=== PATIENT | male | born 1985 | race Caucasian/White ===

== ENCOUNTER 2017-01-26 17:32 | Emergency (ER) | payer OTHER ==
[~2017-01-26] VITALS: Ht 167.6 cm; Wt 87.2 kg
[~2017-01-26 17:32] MED LIST: OMEP10CA2 PO
[2017-01-26 17:34] VITALS: TEMP 36.6; Ht 167.6 cm; Wt 87.2 kg
[2017-01-26] MEDS ORDERED: SODIUM CHLORIDE 0.9% 1000ML 1,000 ML IV STA (17:57)
[2017-01-26] MEDS ORDERED: MECLIZINE HCL 25 MG TAB PO STA (17:57)
[2017-01-26 18:23] LABS: BASO % 0.2 %; BASO ABS # 0.01 K/uL (0-0.2); COMPLETE YES; HEMATOCRIT 42.7 % (42-52); IG% 0.8 %; LYMPH % 32.2 %; MEAN CELL VOLUME 82.9 fL (80-100); MEAN CORPUSCULAR HEMOGLOBIN 28.3 pg (25-34); MEAN CORPUSCULAR HGB CONC 34.2 g/dl (32-36); MEAN PLATELET VOLUME 10.6 fL (7.4-10.4); MONO % 6.1 %; NEUT % 58.7 %; PLATELET COUNT 146 K/uL (130-400); RED BLOOD COUNT 5.15 M/uL (4.7-6.1); WHITE BLOOD COUNT 6.53 K/uL (4.8-10.8)
--- NOTE | 2017-01-26 18:28 | DIAGNOSTIC IMAGING REPORT ---
CHEST ONE VIEW PORTABLE CLINICAL HISTORY: DIZZINESS, NOT FEELING WELL, RECENT C/P dyspnea COMPARISON STUDY: No previous studies for comparison. FINDINGS: The bones soft tissues and hemidiaphragms are normal. The cardiomediastinal silhouette is normal. The lungs are clear. The pulmonary vasculature is normal. IMPRESSION: Negative chest. Electronically signed by: Rufino Mayer M.D. 01/26/2017 6:27 PM Dictated Date/Time: 01/26/2017 6:27 PM
[2017-01-26] MEDS ORDERED: OMEP20TA PO (18:33)
[2017-01-26 18:34] LABS: URINE APPEARANCE CLEAR (CLEAR); URINE BILIRUBIN NEG (NEG); URINE COLOR YELLOW; URINE NITRITE NEG (NEG); URINE PH 6.5 (4.5-7.5); URINE SPECIFIC GRAVITY 1.012 (1.000-1.030); UROBILINOGEN NEG (NEG); ZZUR CULT IF INDIC CLEAN CATCH NO
[2017-01-26 18:37] LABS: BLOOD UREA NITROGEN 16 mg/dl (7-18); BUN/CREATININE RATIO 15.8 (10-20); CALCIUM 8.9 mg/dl (8.5-10.1); CARBON DIOXIDE 28 mmol/L (21-32); CHLORIDE 105 mmol/L (98-107); GLUCOSE 84 mg/dl (70-99); POTASSIUM 3.9 mmol/L (3.5-5.1); SODIUM 141 mmol/L (136-145)
[2017-01-26 18:38] LABS: MANUAL MICROSCOPIC REQUIRED? NO; REVIEW REQ? NO
[2017-01-26 18:39] LABS: C-REACTIVE PROTEIN < 0.29 mg/dl (0-0.29)
--- NOTE | 2017-01-26 18:53 | DIAGNOSTIC IMAGING REPORT ---
HEAD CT NONCONTRAST CT DOSE: 537.48 mGy.cm HISTORY: Mental status change HARRISON, VERTIGO SYMPTOMS, H/O SINUS RECONSTRUCTION TECHNIQUE: Multiaxial CT images of the head were performed without the use of intravenous contrast. Comparison: None. Findings: The paranasal sinuses and mastoid air cells are clear. The calvarium and skull base are intact. The ventricles and sulci are within normal limits. There is no mass, hematoma, midline shift, or acute infarct. Impression: No acute intracranial abnormality. Electronically signed by: Rufino Mayer M.D. 01/26/2017 6:52 PM Dictated Date/Time: 01/26/2017 6:51 PM
[2017-01-26 19:11] LABS: LYME DISEASE AB IGG NEG (NEG); LYME DISEASE AB IGM NEG (NEG)
[2017-01-26] MEDS ORDERED: MECL1TAB42 PO (19:29)
[2017-01-26] MEDS ORDERED: MECLIZINE HCL 25MG HOME PACK PO ONE (19:30)
[2017-01-26 19:50] VITALS: BP 127/81; PULSE 73; O2SAT 98
--- NOTE | 2017-01-26 21:26 | EMERGENCY ROOM VISIT NOTE ---
History First contact with patient: 17:42 Chief Complaint: DIZZY Stated Complaint: DIZZINESS, UPSET STOMACH,TIREDNESS History of Present Illness The patient is a 31 year old male who presents to the Emergency Room with complaints of intermittent dizziness, nausea, fatigue and increased urination. The patient reports that he developed dizziness last Saturday when he rolled out of bed. The patient reports that the symptoms resolved within approximately 30 minutes. That afternoon, he bent over at a birthday green party and developed similar dizziness. He reports that the symptoms were like room was spinning. When he got up Saturday morning, he had to hold onto the mckeon because he felt like he was going to fall. The patient reports that he went through the remainder of the week without any significant symptoms, but did notice some mild symptoms with sudden movement and bending over, along with getting out of bed in the morning. He was playing with his dog on the floor this afternoon and developed similar symptoms. The patient reports a prior history of nasal bone fracture and sinus/nasal reconstruction. He denies any recent runny nose, sore throat, cough, fevers or chills. He did feel sweaty this afternoon when his symptoms developed. The patient denies any recent chest pain, shortness of breath, neck pain, back pain or abdominal pain. He does report that he has had increased urination frequently without increase oral intake. He denies any history of diabetes. He denies any recent rashes or risk of tick bites. Denies any known sick contacts. He has had no recent foreign travel. He denies any headache with the symptoms. He has not noticed any difficulty with speech, swallowing or weakness on one side of his body. Review of Systems HEENT: Denies visual problems, hearing loss, tinnitus. Denies difficulty swallowing or oral lesions. PULMONARY: Denies cough, shortness of breath, sputum production or hemoptysis. CARDIOVASCULAR: Denies chest pain, palpitations, dyspnea on exertion, orthopnea or peripheral edema. GASTROINTESTINAL: Denies diarrhea, constipation, nausea, vomiting, or abdominal pain. GENITOURINARY: Reports increased urinary frequency, without urgency, hematuria or nocturia. NEUROLOGIC: Denies history of epilepsy, CVA, TIA or chronic headaches. MUSCULOSKELETAL: Denies history of joint tenderness/swelling. SKIN: Denies rashes or lesions. PSYCHIATRIC: Denies history of depression or mental illness. ENDOCRINE: Denies history of diabetes or thyroid disorders. Past Medical/Surgical History Medical Problems: (1) Nicotine Dependence, Unspecified, Uncomplicated Surgical Problems: (1) History of nasal surgery (2) History of sinus surgery Family History FH: diabetes mellitus FH: heart disease FH: hypertension Social History Smoking Status: Former Smoker Alcohol Use: none Marital Status: Housing Status: lives with family Occupation Status: employed Current/Historical Medications Scheduled Omeprazole (Omeprazole), 40 MG PO DAILY Scheduled PRN Meclizine Hcl (Meclizine Hcl), 1 TAB PO TID PRN for vertigo Allergies Coded Allergies: No Known Allergies (Unverified , 05/26/16) Physical Exam Vital Signs Date Time Temp Pulse Resp B/P (MAP) Pulse Ox O2 Delivery O2 Flow Rate FiO2 01/26/17 19:50 73 18 127/81 98 01/26/17 18:24 81 01/26/17 17:34 36.6 72 18 97 Room Air Physical Exam CONSTITUTIONAL: Healthy and well nourished. Alert and oriented X 3 with positive affect. Patient does not appear in any acute distress. HEENT: Normocephalic, atraumatic. Pupils equal, round and reactive. Patient has mild bulging of the TMs without air-fluid levels or purulent effusion. Nares are clear without rhinorrhea. No subconjunctival hemorrhage, scleral icterus or conjunctival injection/pallor. The patient has no nystagmus on exam. OROPHARYNX: Mild posterior frontal erythema without tonsillar hypertrophy or exudates. NECK: Full active range of motion without discomfort. No JVD or carotid bruits. LYMPHATICS: No cervical chain adenopathy. RESPIRATORY: Clear to auscultation bilaterally with no wheezing, crackles, rhonchi or stridor. CARDIOVASCULAR: Regular rate and rhythm with no murmurs, rubs or gallops. GASTROINTESTINAL: Bowel sounds present in all quadrants. Abdomen is soft and nontender to palpation. Negative CVA tenderness. No suprapubic tenderness to palpation. Negative McBurney's point tenderness. MUSCULOSKELETAL: Full range of motion of all joints without discomfort. INTEGUMENTARY: No rash or other significant dermatologic conditions noted. HEMATOLOGIC: No ecchymosis or petechiae. NEUROLOGIC: No focal neurologic deficits noted. As indicated in the previous section, no nystagmus noted. The patient does not appear ataxic when walking to his examination room. Normal finger to nose test. Negative pronator drift. Normal fast alternating movements. No pronator drift. Medical Decision & Procedures ER Provider Diagnostic Interpretation: My interpretation of an ECG shows a normal sinus rhythm of [address] elevation or other conduction abnormalities. My interpretation of a portable chest x-ray does not show any consolidations, pneumothorax or cardiac prominence. Noncontrast CT of the head does not show any intracranial bleed, mass effect, midline shift or abnormal sinuses. Radiologist report for the head CT is as follows: HEAD CT NONCONTRAST CT DOSE: 537.48 mGy.cm HISTORY: Mental status change HARRISON, VERTIGO SYMPTOMS, H/O SINUS RECONSTRUCTION TECHNIQUE: Multiaxial CT images of the head were performed without the use of intravenous contrast. Comparison: None. Findings: The paranasal sinuses and mastoid air cells are clear. The calvarium and skull base are intact. The ventricles and sulci are within normal limits. There is no mass, hematoma, midline shift, or acute infarct. Impression: No acute intracranial abnormality. Laboratory Results 01/26/17 18:05 Red Blood Count 5.15, Mean Corpuscular Volume 82.9, Mean Corpuscular Hemoglobin 28.3, Mean Corpuscular Hemoglobin Concent 34.2, Mean Platelet Volume 10.6, Neutrophils (%) (Auto) 58.7, Lymphocytes (%) (Auto) 32.2, Monocytes (%) (Auto) 6.1, Eosinophils (%) (Auto) 2.0, Basophils (%) (Auto) 0.2, Neutrophils # (Auto) 3.84, Lymphocytes # (Auto) 2.10, Monocytes # (Auto) 0.40, Eosinophils # (Auto) 0.13, Basophils # (Auto) 0.01 01/26/17 18:05 Test 01/26/17 18:05 01/26/17 18:30 White Blood Count 6.53 K/uL (4.8-10.8) Red Blood Count 5.15 M/uL (4.7-6.1) Hemoglobin 14.6 g/dL (14.0-18.0) Hematocrit 42.7 % (42-52) Mean Corpuscular Volume 82.9 fL (80-100) Mean Corpuscular Hemoglobin 28.3 pg (25-34) Mean Corpuscular Hemoglobin Concent 34.2 g/dl (32-36) Platelet Count 146 K/uL (130-400) Mean Platelet Volume 10.6 fL (7.4-10.4) Neutrophils (%) (Auto) 58.7 % Lymphocytes (%) (Auto) 32.2 % Monocytes (%) (Auto) 6.1 % Eosinophils (%) (Auto) 2.0 % Basophils (%) (Auto) 0.2 % Neutrophils # (Auto) 3.84 K/uL (1.4-6.5) Lymphocytes # (Auto) 2.10 K/uL (1.2-3.4) Monocytes # (Auto) 0.40 K/uL (0.11-0.59) Eosinophils # (Auto) 0.13 K/uL (0-0.5) Basophils # (Auto) 0.01 K/uL (0-0.2) RDW Standard Deviation 37.0 fL (36.4-46.3) RDW Coefficient of Variation 12.3 % (11.5-14.5) Immature Granulocyte % (Auto) 0.8 % Immature Granulocyte # (Auto) 0.05 K/uL (0.00-0.02) Erythrocyte Sedimentation Rate 2 mm/hr (0-14) Anion Gap 8.0 mmol/L (3-11) Est Creatinine Clear Calc Drug Dose 108.7 ml/min Estimated GFR () 114.1 Estimated GFR (Non- 98.5 BUN/Creatinine Ratio 15.8 (10-20) Calcium Level 8.9 mg/dl (8.5-10.1) C-Reactive Protein < 0.29 mg/dl (0-0.29) Lyme Disease IgG Antibody NEG (NEG) Lyme Disease IgM Antibody NEG (NEG) Monoscreen NEG (NEG) Urine Color YELLOW Urine Appearance CLEAR (CLEAR) Urine pH 6.5 (4.5-7.5) Urine Specific [place] 1.012 (1.000-1.030) Urine Protein NEG (NEG) Urine Glucose (UA) NEG (NEG) Urine Ketones NEG (NEG) Urine Occult Blood NEG (NEG) Urine Nitrite NEG (NEG) Urine Bilirubin NEG (NEG) Urine Urobilinogen NEG (NEG) Urine Leukocyte Esterase NEG (NEG) The above labs were reviewed. Urinalysis is unremarkable. CBC, partial renal profile and LFTs are normal. C-reactive protein and sedimentation rate are normal. [place] screen and Lyme screen are negative. Medications Administered Medications (Trade) Dose Ordered Sig/Regis Route Start Time Stop Time Status Last Admin Dose Admin Meclizine HCl (Antivert Tab) 50 mg NOW STAT PO 01/26/17 17:57 01/26/17 18:02 DC 01/26/17 18:25 50 MG Sodium Chloride 1,000 ml @ 999 mls/hr Q1H1M STAT IV 01/26/17 17:57 01/26/17 18:57 DC 01/26/17 18:24 999 MLS/HR Meclizine HCl (Antivert 25MG Home Pack) 1 homepack UD ONCE PO 01/26/17 19:30 01/26/17 19:31 DC 01/26/17 19:45 1 HOMEPACK ED Course Patient history and physical exam were performed. Nurse's notes were reviewed. Vital signs were reviewed and were normal. The patient was advised that his symptoms are most consistent with benign positional vertigo. However, I did suggest performing additional lab work because of the additional symptoms that he has been experiencing lately. IV access was established, and labs were drawn. The patient was hydrated with a liter normal saline. He was administered meclizine 50 mg orally. Review of labs shows no acute abnormalities. Lyme screen and mono screen are negative. ECG and portable chest x-ray were normal. Noncontrast CT of the head was also normal. The patient reports improvement of his symptoms with the oral meclizine. He requested discharge home. The patient was advised that his symptoms are most consistent with benign positional vertigo. The patient was provided with a prescription for meclizine. He was instructed to avoid sudden movements. An educational handout was provided. He was encouraged to follow-up with his family doctor for further reevaluation and management. Return to the emergency Department for uncontrollable symptoms or other concerning neurologic symptoms. The patient was happy with plan of care, voiced understanding of all discharge instructions I'll and was discharged with his . Medical Decision Patient present to the emergency department for evaluation of intermittent dizziness with sensation of the room spinning. He also ambulates with his arms outstretched because of the unsteadiness. The symptoms are worsened with sudden movement and bending over. The symptoms are most consistent with benign positional vertigo. His laboratory studies are unremarkable. He has no fever or leukocytosis, and sedimentation rate/CRP are also normal. Head CT does not show any evidence for midline shift, mass effect, CVA, intracranial bleed or other acute findings. Laboratory studies are otherwise unremarkable. Regarding the patient's urinary frequency, his urinalysis is unremarkable. His random blood glucose is normal. Exact etiology for his urinary frequency is unknown at this time. I do not suspect an acute cardiopulmonary etiology. I do feel that the patient is safe for outpatient management. Impression Primary Impression: Benign positional vertigo Additional Impression: Urinary frequency Departure Information Prescriptions Meclizine Hcl (MECLIZINE HCL) 25 Mg Tab 1 TAB PO TID Y for vertigo for 10 Days, #30 TAB Prov: Virgilio Garcia PA 01/26/17 Referrals Nunu Joe D.O. (PCP) Patient Instructions My [facility] Problem Qualifiers Primary Impression: Benign positional vertigo Laterality: unspecified laterality Qualified Codes: H81.10 - Benign paroxysmal vertigo, unspecified ear
== END 2017-01-26 19:53 | disposition home or self-care (01) ==
LOC: C.EDB 17:33 → C.EDC 19:53
DX: H81.10 Benign paroxysmal vertigo, unspecified ear (principal); R35.0 Frequency of micturition; F17.200 Nicotine dependence, unspecified, uncomplicated; Z83.3 Family history of diabetes mellitus; Z82.49 Family history of ischemic heart disease and other diseases of the circulatory system; Z87.891 Personal history of nicotine dependence